=== PATIENT | male | born 1995 | race Caucasian/White ===

== ENCOUNTER 2025-02-24 09:20 | Outpatient (CLI) | payer BC, SELFPAY ==
--- OUTSIDE RECORDS SUMMARY | 2025-02-24 09:26 | XMS_ITS | Clinical Summary ---
[facility] Address [address] [place] [address] Care Team Providers Care Strip Deburrer Name Role Phone Rolando Gómez MD Primary Care Provider + [phone] Allergies No known active allergies Medications Pseudoephedrine -Ibuprofen 30-200 MG tablet Take by mouth. Activ e terbinafine (lamISIL) 1 % creamIndication s:Tinea pedis of both feet Apply topically 2 (Two) Times a Day. 1 g 1 7 Active triamcinolone (KENALOG) 0.1 % cream Apply topically 2 (Two) Times a Day. 15 g 1 7 Active Active Problems No known active problems Family History Medical History Relation Name Comments No Known Problems Brother No Known Problems Father Heart disease Maternal Grandfather Cardia c stent Cancer Mother Thyroid Cancer Paternal Grandfather Non Hod gkins Lymphoma Alzheimer's disease Paternal Grandmother No Known Problems Sister Relation Name Status Comments Brother Alive Father Alive Maternal Grandfather Alive Maternal Grandmother Alive Mother Alive Paternal Grandfather Paternal Grandmother Alive Sister Alive Social History Tobacco Use Types Packs/Day Years Used Date Smoking Tobacco: Never Smokeless Tobacco: Former Chew Quit: 2015 Tobacco Cessation:Counseling Given: No Alcohol Use Standard Drinks/Week Comments Yes 3 (1 standard drink = 0.6 oz pur e alcohol) once per week Abuse Screen Answer Date Recorded Unsafe at Home or Work/School Not on file Feels Threatened by Someone? Not on file 01/2023 Does Anyone Keep You from Co ntacting Others or Doint Things Outside the Home? Not on file 12/12/2022 Physical Sign of Abuse Present Not on file 1 Housing Stability Answer Date Recorded Current Living Arrangements Not on file 12/02 Potentially Unsafe Housing Conditions Not on sarah e 12/12/2022 Family and Community Support Answer David e Recorded Help with Day-to-Day Activities Not on file 12/12/2022 Lonely or Isolated Not on file 12/12/2022 Employment Answer Date Recorded Do you want help finding or keeping work or a nayely b? Not on file 12/12/2022 Disabilities Answer Date Recorded Concentrating, Remembering, or Making Decisions Difficulty Not on file 12/12/2022 Doing Errands Independently Difficulty Not on fi le 12/12/2022 Education Answer Date Recorded Help with school or training? 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 Not on file Not on file Not on file Last Filed Vital Signs Vital Sign Reading Time Taken Comments Blood Pressure 118/74 04/11/2016 3:13 PM EST Pulse 66 04/11/2016 3:13 PM EST Temperature 36.6 C (97.9 F) 04/11/2016 3:13 PM EST Respiratory Rate 16 06/28/2016 2:39 PM EDT Oxygen Saturation 97% 04/11/2016 3:13 PM EST Inhaled Oxygen Concentration - - Weight 108 kg (238 lb 6.4 oz) 04/11/2016 3:13 PM EST Height 180.3 cm (5' 11 ) 04/11/2016 3:13 PM EST Body Mass Index 33.25 04/11/2016 3:13 PM EST Plan of Treatment Upcoming Encounters Date Type Department Care Team (Late st Contact Info) Description 06/10/2025 1:00 PM EDT Office Visit [facility] [address] [facility] [address] [place] [address] Harris Salazar, [employer] [address] [place] [address] Health Maintenance Due Date Last Done Comments TDAP/TD VACCINES ( Tdap) 2012 ANNUAL PHYSICAL 06/28/2016 HEPATITIS C SCREENING 06/28/2016 INFLUENZA VACCINE 10/02/2024 Pneumococcal Vaccine 0-49 Aged Out No longer eligible based on patient's age to complete this topic Insurance [facility] PPO Care Teams Strip Deburrer Relationship Specialty Start Date End Date Rolando Gómez MD [address] [facility] [address] [facility], [place] [address] PCP - General Adolescent Medicine 01/06/25
--- OUTSIDE RECORDS SUMMARY | 2025-02-24 09:26 | XMS_ITS | Clinical Summary ---
Author Organization [facility] Address [address] [place], [place] [id number] Phone [email or web address] Care Team Providers Care Prevention Rn Name Role Phone Unavailable Primary Care Provider Unavailabl e Allergies No known active allergies Medications buPROPion XL (WELLBUTRIN XL) 150 MG 24 hr tablet Take 1 tablet by mouth 1 (one) time each day. Active Zepbound 10 MG/0.5ML solution auto-injector Inject 0.5 mL every week by subcutaneous route for 30 days. Active Active Problems No known active problems Immunizations Immunization Administration Dates Next Due COVID-19 (Pfizer Mathews 12 yrs+) ([id number]) 021,05/10/2020 Social History Tobacco Use Types Packs/Day Years Used Date Smoking Tobacco: Never Smokeless Tobacco: Never Tobacco Cessation:Counseling Given: Not Answered Intimate Partner Violence Answer Date R ecorded Insults You Not on file 06/15/2020 Threatens You Not on file 06/15/2020 Screams at You Not on file 06/15/2020 Physically Hurt Not on file 06/15/2020 Intimate Partner Violence Score Not on file 06/15/2020 Stress Answer Date Recorded Stress in your Life Not on file 01/06/2024 Dealing with Stress 3 01/06/2024 Sex and Gender Information Value Date Recorded Sex Assigned at Male 09/27/2023 8:00 AM CDT Legal Sex Male 9:36 AM CDT Gender Identity Male 09/27/2023 8:00 AM CDT Sexual Orientation Not on file Last Filed Vital Signs Vital Sign Reading Time Taken Comments Blood Pressure 102/72 09/27/2023 9:11 AM EDT Pulse 69 09/27/2023 9:11 AM EDT Temperature 36.6 C (97.9 F) 09/27/2023 9:11 AM EDT Respiratory Rate 14 09/27/2023 9:11 AM EDT Oxygen Saturation 98% 09/27/2023 9:11 AM EDT Inhaled Oxygen Concentration - - Weight 99.8 kg (220 lb) 09/27/2023 9:11 AM EDT Height 180.3 cm (5' 11 ) 09/27/2023 9:11 AM EDT Body Mass Index 30.68 09/27/2023 9:11 AM EDT Plan of Treatment Health Maintenance Due Date Last Done Comments Dental Cleaning/Exam 1993 HIV Screening 1993 Hepatitis C Screening 1993 HPV Immunization (1 - Male 3-dose series) 2008 Annual Preventive Exam 2011 Hep B Infection Screening - Triple Screen 2011 Hepatitis B Immunization (1 of 3 - 19+ 3-dose series) 2012 Covid-19 Immunization (4 - season) 2024 01/16/2021, 06/03/2020, 05/10/2020 Influenza Immunization (#1) 11/02/202412/04, 12/21/2020 Tetanus Diphtheria and Pertussis Immunization (2 - Td or Tdap) 12/21/2030 12/21/2020 HIB Immunization Aged Out No longer e ligible based on patient's age to complete this topic Hepatitis A Immunization Aged Out No longer eligible based on patient's age to complete this topic Pneumococcal Immunization Aged Out No longer eligible based on patient's age to complete this topic Polio Immunization Aged Out No longer eligible based on patient's age to complete this topic Varicella Immunization Aged Out No lo nger eligible based on patient's age to complete this topic Insurance OPT OUT NO COPAY NB
[2025-02-24 09:51] LABS: Hematocrit 44.7 % (42.0-52.0); Hemoglobin 14.4 g/dL (14.1-18.0); Immature Granulocytes % 0.3 %; Mean Corpuscular HGB Conc 32.2 g/dL (31.8-35.4); Mean Corpuscular Hemoglobin 26.7 pg (27.0-31.2); Mean Corpuscular Volume 82.8 fl (80-94); Nucleated Red Blood Cells % 0 %; Platelet Count 273 K/mm3 (142-424); Red Blood Count 5.40 M/mm3 (4.60-6.20); Red Cell Distribution Width-SD 36.5 fL; White Blood Count 6.7 K/mm3 (4.8-10.8)
[2025-02-24 10:46] LABS: Alanine Aminotransferase 35 U/L (12-78); Albumin Level 4.6 g/dl (3.5-5.0); Albumin/Globulin Ratio 1.8 (1.1-1.8); Alkaline Phosphatase 59 U/L (38-126); Anion Gap 9.7 mEq/L (5-15); Aspartate Amino Transferase 37 U/L (17-59); Bilirubin,Total 0.7 mg/dl (0.2-1.3); Blood Urea Nitrogen 20 mg/dl (9-20); Calcium 9.5 mg/dl (8.4-10.2); Carbon Dioxide 30 mmol/L (22.0-30.0); Chloride 104 mmol/L (98-107); Creatinine,Serum 1.30 mg/dl (0.66-1.25); Estimated Glomerular Filt Rate 64 ml/min (>60); GFR (African American) 78 ML/MIN (>60); Globulin 2.6 g/dL (1.3-3.2); Glucose 89 mg/dl (74-100); Potassium 4.7 mmoL/L (3.5-5.1); Sodium 139 mmol/L (136-145); Total Protein,Serum 7.2 g/dl (6.3-8.2)
[2025-02-24 11:00] LABS: 25-OH Vitamin D, Total 38.7 ng/mL (30-100)
[2025-02-26 15:39] LABS: Testosterone,Free 12.6 pg/mL (8.7-25.1)
== END 2025-02-24 23:59 | disposition home or self-care (01) ==
PROVIDERS: PCP Internal Medicine Adolescent Medicine; Visit Provider Internal Medicine Adolescent Medicine
DX: R53.81 Other malaise (principal); E66.01 Morbid (severe) obesity due to excess calories
CPT/HCPCS: 36415; 80053; 82306; 84402; 84403; 85025